=== PATIENT | female | born 1975 | race African-American/Black ===

== ENCOUNTER → 2016-12-02 | Outpatient (CLI) | payer OTHER ==
--- NOTE | 2016-12-02 12:39 | DX ---
Right ankle, three views. History: trauma, pain Findings: Ankle mortice is intact. No fracture or joint effusion. Lateral soft tissue swelling is p resent. Heterotopic bone is identified interposed between the distal right tibia and fibula compatibl e with prior syndesmotic injury an ossification. Impression: Negative right ankle series. Lateral soft tissue swelling compatible with sprain. Eviden ce of prior injury to the distal tibial-fibular syndesmosis.
== END ==
LOC: BMCIMAGING 11:26
PROVIDERS: ATTEND Family Medicine
DX: S93.401A Sprain of unspecified ligament of right ankle, initial encounter (principal); X50.9XXA Other and unspecified overexertion or strenuous movements or postures, initial encounter

== ENCOUNTER → 2018-02-18 | Outpatient (CLI) | payer OTHER | LOC: BMCIMAGING 09:23 | PROVIDERS: ATTEND Family Medicine | DX: M79.671 Pain in right foot (principal) ==

== ENCOUNTER → 2019-01-27 | Outpatient (CLI) | payer OTHER | LOC: FIMAGING 08:54 | PROVIDERS: ATTEND Family Medicine | DX: Z12.31 Encounter for screening mammogram for malignant neoplasm of breast (principal) ==